=== PATIENT | female | born 1990 | race African-American/Black ===

== ENCOUNTER 2021-10-18 13:55 | Outpatient (CLI) | payer OTHER | END 2021-10-18 13:56 | disposition home or self-care (01) | LOC: DTY/OP 13:55 | PROVIDERS: ATTEND Nurse Practitioner Family | DX: E66.9 Obesity, unspecified (principal); R53.82 Chronic fatigue, unspecified; R76.8 Other specified abnormal immunological findings in serum; Z68.31 Body mass index [BMI] 31.0-31.9, adult | CPT/HCPCS: 97802 ==